=== PATIENT | male | born 1955 | race Caucasian/White ===

== ENCOUNTER 2021-06-28 09:41 | Emergency (ER) | payer OTHER ==
[~2021-06-28] VITALS: Ht 182.9 cm; Wt 113.4 kg
[~2021-06-28 09:41] MED LIST: LIPITOR 20 MG T20 M1 PO
[2021-06-28] MEDS ORDERED: OLMESARTAN MEDO20 MG PO (09:48)
[2021-06-28] MEDS ORDERED: TESTOSTERONE75 G1 TOP (09:49)
[2021-06-28 09:52] LABS: BASOPHILS 0.5 % (0.0-2.0); EOSINOPHILS 3.1 % (0.0-3.0); HEMATOCRIT 49.7 % (42.0-52.0); HEMOGLOBIN 16.7 gm/dL (14.0-18.0); LYMPHOCYTES 24.9 % (24.0-44.0); MCH 30.2 pg (26.0-34.0); MCHC 33.6 g/dL (28.0-37.0); MCV 89.9 fL (80.0-100.0); PLATELET COUNT 175 thou/uL (150-400); POLYS 59.5 % (36.0-66.0); RBC 5.53 mil/uL (4.50-6.00); RDW 13.8 % (10.5-14.5); WBC 8.4 thou/uL (4.0-11.0)
[2021-06-28 10:03] LABS: CALCIUM 8.6 mg/dL (8.5-10.1); CREATININE 1.4 mg/dL (0.7-1.3); POTASSIUM 4.8 mmol/L (3.5-5.1)
[2021-06-28 10:23] LABS: ALBUMIN 3.6 g/dL (3.4-5.0); TOTAL BILIRUBIN 0.9 mg/dL (0.2-1.0)
[2021-06-28 11:25] VITALS: BP 164/92
--- NOTE | 2021-06-28 15:26 | EKG ---
[place] [address] [employer] [place] [address] ELECTROCARDIOGRAM REPORT Name: GLADISPADMINI TONNY Room #: [facility]P [id number] Admission: 06/28/21 Attend Phys: Discharge: 06/28/21 Date of : 57 Report #: [id number] [facility] ED Test Date: 2021-06-28 Test Time: 09:39:19 Pat Name: PADMINI GRIFFITH Department: Room: Gender: M Vice President [employer]ending: messi : 1955 Requested By: Magno Ashley Order Number: [id number] MD: Paulo Craig Measurements Intervals [place] Rate: 72 P: 46 [place]: 176 QRS: -39 QRSD: 110 T: 57 QT: 392 QTc: 430 Interpretive Statements Sinus rhythm Left ventricular hypertrophy Anterior Q waves, possibly due to LVH No previous ECG available for comparison Electronically Signed On 06-28-2021 15:26:10 CDT by Paulo Craig [email or web address] <ELECTRONICALLY SIGNED> By: Paulo Craig MD, [facility] 06/28/21 1526 0939 0939 Paulo Craig MD, FACMargi /EPI
== END 2021-06-28 11:49 | disposition home or self-care (01) ==
LOC: ER 09:41
PROVIDERS: Emergency Medicine
DX: R07.89 Other chest pain (principal); I10 Essential (primary) hypertension; E78.00 Pure hypercholesterolemia, unspecified; Z79.891 Long term (current) use of opiate analgesic; Z79.899 Other long term (current) drug therapy

== ENCOUNTER → 2021-07-03 | Outpatient (CLI) | payer OTHER, MEDICARE ==
[~2021-07-03] MED LIST changes: +OLMESARTAN MEDO20 MG PO; +TESTOSTERONE75 G1 TOP
== END ==
LOC: SJCVCIMAG 15:44
PROVIDERS: ATTEND Family Medicine
DX: R07.9 Chest pain, unspecified (principal); I10 Essential (primary) hypertension; E78.5 Hyperlipidemia, unspecified; I25.10 Atherosclerotic heart disease of native coronary artery without angina pectoris; G47.33 Obstructive sleep apnea (adult) (pediatric); Z72.89 Other problems related to lifestyle; Z79.82 Long term (current) use of aspirin; Z79.899 Other long term (current) drug therapy